=== PATIENT | male | born 1990 | race Two or more races ===

== ENCOUNTER 2019-02-24 17:53 | Emergency (ER) | payer OTHER ==
[~2019-02-24] VITALS: Ht 180.3 cm; Wt 147.4 kg
[2019-02-24 18:26] LABS: Basophils # (auto) 0.1 uL; Lymphocytes # (auto) 2.9 uL; Monocytes # (auto) 0.4 uL; White Blood Cell 8.4 10^3/uL (4.4-10.8)
[2019-02-24 18:30] LABS: Eosinophils # (auto) 0.1 uL; Eosinophils % (auto) 1.7 % (0.0-7.0); Hematocrit 44.5 % (41.0-53.0); Hemoglobin 14.9 g/dL (13.5-17.5); Lymphocytes % (auto) 34.2 % (10.0-50.0); Mean Corpuscular Hemoglobin 26.4 pg (28.0-32.0); Mean Corpuscular Hgb Conc. 33.4 g/dL (32.0-36.0); Mean Corpuscular Volume 79.1 fL (80.0-100.0); Neutrophils # (auto) 4.9 uL; Neutrophils % (auto) 58.1 % (37.0-80.0); Platelet Count (auto) 266 10^3/uL (140-450); Red Blood Cells 5.63 10^6/uL (4.5-5.90); Red Cell Distribution Width 13.9 % (11.8-14.3)
[2019-02-24 18:47] LABS: Alanine Aminotransferase 79 U/L (16-61); Albumin 3.4 g/dL (3.4-5.0); Anion Gap 8 (5-15); Blood Urea Nitrogen 14 mg/dL (7-18); Calcium 8.6 mg/dL (8.5-10.1); Carbon Dioxide 24 mmol/L (21-32); Chloride 104 mmol/L (98-107); Glucose 336 mg/dL (74-106); Potassium 3.9 mmol/L (3.5-5.1); Sodium 136 mmol/L (136-145)
[2019-02-24 18:52] LABS: Alkaline Phosphatase 126 U/L (45-117); Aspartate Aminotransferase 24 U/L (15-37); BUN/Creatinine Ratio 17.1; Bilirubin, Total 0.5 mg/dL (0.2-1.0); GFR African American 144 mL/min; GFR Non-African American 119 mL/min; Total Protein 7.9 g/dL (6.4-8.2)
[2019-02-24 19:15] VITALS: BP 144/82
== END 2019-02-24 19:33 | disposition home or self-care (01) ==
LOC: EDBD 17:53 → ER 18:06
DX: J20.9 Acute bronchitis, unspecified (principal); J45.909 Unspecified asthma, uncomplicated; E11.9 Type 2 diabetes mellitus without complications; I10 Essential (primary) hypertension
CPT/HCPCS: 36415; 71046; 80053; 84484; 85025; 94761